=== PATIENT | male | born 1965 | race Caucasian/White ===

== ENCOUNTER 2017-06-28 10:17 | Inpatient (IN) | payer BC ==
[~2017-06-28] VITALS: Ht 180.3 cm; Wt 144.0 kg
[~2017-06-28 10:17] MED LIST: ALLERGY RELIEF10 M5 PO; ANCEF,KEFZ2 GM/100 M IV; ASPIRIN EC325 MG PO; ATORVASTATIN CA40 MG PO; BACTRIM,SEPT1 TABLET PO; CHILD ASPIRIN81 M1 PO; CINNAMON PLUS1 EACH PO; Colace PO; FISH OIL EC 1,1 EACH PO; FLONASE16 G1 BOTH NARES; GLUCOPHAGE850 MG PO; HUMALOG100 UNIT/1 SC; HUMULIN R100 UNITS/ SC; IODOSORB40 GM TP; JARDIANCE25 MG PO; LEVEMIR FL100 UNIT/1 SC; LEVEMIR FL100 UNITS/ SC; LOPID600 MG PO; LOTREL 5/201 CAPSULE PO; MAGNESIUM OXID500 MG PO; NIACIN FLUSH F1 EACH PO; NITROGLYCERIN0.4 MG SL; ONE DAILY FOR1 EACH PO; PRILOSEC40 MG PO; RANEXA500 MG PO; TOPROL XL100 MG PO; VENLAFAXINE HCL75 M3 PO; VIAGRA100 MG PO; VITAMIN B122500 MCG PO; VITAMIN C WIT1000 MG PO
[2017-06-28 17:07] VITALS: BP 106/56
[2017-06-28 19:50] VITALS: BP 107/53
[2017-06-28 23:55] VITALS: BP 103/57
[2017-06-29 04:00] VITALS: BP 132/69
[2017-06-29 05:45] LABS: BASOPHIL (%) 0.6 % (0-1); EOSINOPHIL (%) 1.6 % (0-5); EOSINOPHIL COUNT 0.1 K/uL (0-0.3); HEMATOCRIT 36.6 % (38.0-50.0); HEMOGLOBIN 11.6 G/DL (12.5-16.6); IMMATURE GRANULOCYTE (%) 0.3 % (0.0-0.7); LYMPHOCYTE (%) 30.8 % (15-42); LYMPHOCYTE COUNT 2.1 K/uL (1.0-2.8); MCH 27.4 PG (29.0-34.0); MCHC 31.7 G/DL (30.0-36.0); MCV 86.3 FL (86-99); MONOCYTE (%) 8.5 % (3-12); MONOCYTE COUNT 0.6 K/uL (0-0.8); NEUTROPHIL (%) 58.2 % (45-76); PLATELET COUNT 211 K/uL (156-360); RBC DIS.WIDTH-CV 13.4 % (11.8-14.6); RBC DIS.WIDTH-SD 41.5 % (39-53); RED BLOOD COUNT 4.24 M/uL (4.00-5.50); WHITE BLOOD COUNT 6.8 K/uL (4.1-10.2)
[2017-06-29 06:13] LABS: CHLORIDE 107 MEQ/L (99-109); CREATININE 1.2 MG/DL (0.6-1.3); GFR ESTIMATE (CALCULATED) > 59 mL/min/ (58.99-99999); GLUCOSE 166 mg/dL (70-99); SODIUM 138 MEQ/L (136-147); UREA NITROGEN (BUN) 20 mg/dL (9-23)
[2017-06-29 06:24] LABS: POTASSIUM ND MEQ/L (3.7-5.4)
[2017-06-29 07:50] LABS: POTASSIUM 4.8 MEQ/L (3.7-5.4)
[2017-06-29 07:51] VITALS: BP 115/56
[2017-06-29 11:20] VITALS: BP 118/59
[2017-06-29] MEDS ORDERED: EFFIENT10 MG PO (11:26)
== END 2017-06-29 17:03 | disposition home or self-care (01) | DRG 247 ==
LOC: CATH 10:17 → ENRESERV 14:43 → 2SOUTH 14:49 → 4EAST 14:49 → ENRESERV 14:58 → 4EAST 16:57
PROVIDERS: Internal Medicine Interventional Cardiology
PROC: 4A023N7 Measurement of Cardiac Sampling and Pressure, Left Heart, Percutaneous Approach (ICD-10-PCS; principal; 2017-06-28)
PROC: 027135Z Dilation of Coronary Artery, Two Arteries with Two Drug-eluting Intraluminal Devices, Percutaneous Approach (ICD-10-PCS; principal; 2017-06-28)
PROC: B2111ZZ Fluoroscopy of Multiple Coronary Arteries using Low Osmolar Contrast (ICD-10-PCS; principal; 2017-06-28)
PROC: B2151ZZ Fluoroscopy of Left Heart using Low Osmolar Contrast (ICD-10-PCS; principal; 2017-06-28)
DX: I25.110 Atherosclerotic heart disease of native coronary artery with unstable angina pectoris (principal); Z68.42 Body mass index [BMI] 45.0-49.9, adult; E66.9 Obesity, unspecified; I34.0 Nonrheumatic mitral (valve) insufficiency; I10 Essential (primary) hypertension; E78.2 Mixed hyperlipidemia; E11.42 Type 2 diabetes mellitus with diabetic polyneuropathy; G47.33 Obstructive sleep apnea (adult) (pediatric)
CPT/HCPCS: 80048; 82948; 84999; 85025; 85347; 93005; C1725; C1769; C1874; C1887; J1644; J2250; J3010; J7030

== ENCOUNTER 2017-08-03 21:54 | Inpatient (IN) | payer BC ==
[~2017-08-03] VITALS: Ht 180.3 cm; Wt 150.0 kg
[~2017-08-03 21:54] MED LIST changes: +ADULT ASPIRIN81 MG PO; -ALLERGY RELIEF10 M5 PO; -CHILD ASPIRIN81 M1 PO; +EFFIENT10 MG PO; -HUMULIN R100 UNITS/ SC; +HUMULIN R500 UNIT/1 SC; +OMEPRAZOLE40 M1 PO; -PRILOSEC40 MG PO; -VITAMIN C WIT1000 MG PO; +VITAMIN C1000 MG PO; +ZYRTEC10 M3 PO
[2017-08-03 22:31] LABS: HEMATOCRIT 33.5 % (38.0-50.0); HEMOGLOBIN 11.5 G/DL (12.5-16.6); MCH 28.5 PG (29.0-34.0); MCHC 34.3 G/DL (30.0-36.0); MCV 83.1 FL (86-99); PLATELET COUNT 203 K/uL (156-360); RBC DIS.WIDTH-CV 13.3 % (11.8-14.6); RBC DIS.WIDTH-SD 40.4 % (39-53); RED BLOOD COUNT 4.03 M/uL (4.00-5.50); WHITE BLOOD COUNT 10.3 K/uL (4.1-10.2)
[2017-08-03 22:42] LABS: INTER. NORMALIZED RATIO 1.2
[2017-08-03 22:44] LABS: CHLORIDE 103 mEq/L (99-109); PTT 24.2 SEC (25-37); SODIUM 135 mEq/L (136-147)
[2017-08-03 22:46] LABS: GLUCOSE 106 mg/dL (70-99)
[2017-08-03 22:49] LABS: CREATININE 1.2 mg/dL (0.6-1.3); GFR ESTIMATE (CALCULATED) > 59 mL/min/ (58.99-99999)
[2017-08-03 22:50] LABS: UREA NITROGEN (BUN) 23 mg/dL (9-23)
[2017-08-03 22:55] LABS: TROP-I INTERPRETATION NEGATIVE; TROPONIN-I 0.06 ng/mL (0.0-0.30)
[2017-08-03] MEDS ORDERED: EFFIENT10 MG PO (23:29)
[2017-08-04 02:05] LABS: ERTH.SED.RATE 25 MM/HR (0-15)
[2017-08-04 02:21] VITALS: BP 127/60
[2017-08-04 05:50] LABS: TROP-I INTERPRETATION INDETERMINATE; TROPONIN-I 0.56 ng/mL (0.0-0.30)
[2017-08-04 05:54] LABS: HDL CHOLESTEROL 27 MG/DL (Desirable>=40); LDL CHOLESTEROL 56 mg/dL (Desirable<100); NON-HDL CHOLESTEROL 81 mg/dL (Desirable<160); TOTAL CHOLESTEROL 108 mg/dL (Desirable<200); TRIGLYCERIDES 124 MG/DL (Normal: <150)
[2017-08-04 07:30] VITALS: BP 130/62
[2017-08-04 09:30] VITALS: BP 127/77
[2017-08-04 09:41] LABS: DEVICE NRB; FI02 100 %; SITE RR
[2017-08-04 09:42] LABS: BICARBONATE 22.7 mEq/L (22-26); CARBOXY HGB 1.8 % (0-5); METHEMOGLOBIN 0.6 % (0-1.5); O2 SATURATION (CALCULATED) 88.4 % (95-99); PCO2 42 mm Hg (35-45); PO2 58 mm Hg (80-100); pH 7.34 (7.35-7.45)
[2017-08-04 10:01] LABS: INTER. NORMALIZED RATIO 1.2
[2017-08-04 10:03] LABS: D-DIMER ELISA < 150.00 ng/mLDDU (<230)
[2017-08-04 10:04] LABS: PTT 28.9 SEC (25-37)
[2017-08-04 10:17] LABS: TROP-I INTERPRETATION INDETERMINATE
[2017-08-04 10:18] LABS: TROP-I INTERPRETATION INDETERMINATE; TROPONIN-I 0.53 ng/mL (0.0-0.30)
[2017-08-04 10:48] LABS: HEMOGLOBIN A1c (GLYCOHEMOGLOB) 6.7 % (Below 5.7)
[2017-08-04 15:03] VITALS: BP 123/63
[2017-08-04 17:31] LABS: TROP-I INTERPRETATION POSITIVE; TROPONIN-I 5.54 ng/mL (0.0-0.30)
[2017-08-04 17:53] VITALS: BP 138/73
[2017-08-04 20:25] VITALS: BP 132/65
[2017-08-04 20:35] LABS: CHLORIDE 102 MEQ/L (99-109); CREATININE 1.3 MG/DL (0.6-1.3); GFR ESTIMATE (CALCULATED) > 59 mL/min/ (58.99-99999); GLUCOSE 112 mg/dL (70-99); POTASSIUM 4.7 MEQ/L (3.7-5.4); SODIUM 138 MEQ/L (136-147); UREA NITROGEN (BUN) 18 mg/dL (9-23)
[2017-08-04 20:35] LABS: INTER. NORMALIZED RATIO 1.2
[2017-08-04 20:38] LABS: PTT 25.3 SEC (25-37)
[2017-08-05 00:26] VITALS: BP 124/68
[2017-08-05 05:05] VITALS: BP 111/71
[2017-08-05 07:38] VITALS: BP 129/67
[2017-08-05 10:39] LABS: BASOPHIL (%) 0.4 % (0-1); EOSINOPHIL (%) 1.2 % (0-5); EOSINOPHIL COUNT 0.1 K/uL (0-0.3); HEMATOCRIT 33.1 % (38.0-50.0); IMMATURE GRANULOCYTE (%) 0.4 % (0.0-0.7); LYMPHOCYTE (%) 20.3 % (15-42); LYMPHOCYTE COUNT 1.6 K/uL (1.0-2.8); MCH 27.8 PG (29.0-34.0); MCHC 33.2 G/DL (30.0-36.0); MCV 83.6 FL (86-99); MONOCYTE (%) 7.1 % (3-12); MONOCYTE COUNT 0.6 K/uL (0-0.8); NEUTROPHIL (%) 70.6 % (45-76); NEUTROPHIL COUNT 5.7 K/uL (1.8-6.4); PLATELET COUNT 195 K/uL (156-360); RBC DIS.WIDTH-CV 13.2 % (11.8-14.6); RBC DIS.WIDTH-SD 40.2 % (39-53); RED BLOOD COUNT 3.96 M/uL (4.00-5.50)
[2017-08-05 11:09] LABS: TROP-I INTERPRETATION POSITIVE; TROPONIN-I 3.16 ng/mL (0.0-0.30)
[2017-08-05 11:37] LABS: CHLORIDE 100 MEQ/L (99-109); CREATININE 1.2 MG/DL (0.6-1.3); GFR ESTIMATE (CALCULATED) > 59 mL/min/ (58.99-99999); GLUCOSE 157 mg/dL (70-99); POTASSIUM 4.1 MEQ/L (3.7-5.4); SODIUM 136 MEQ/L (136-147); UREA NITROGEN (BUN) 20 mg/dL (9-23)
[2017-08-05 11:40] VITALS: BP 118/55
[2017-08-05 15:46] VITALS: BP 134/65
[2017-08-05 19:33] VITALS: BP 130/65
[2017-08-06] VITALS (7 sets, daily range): BP systolic 124–137; BP diastolic 60–79
[2017-08-06 06:55] LABS: HEMATOCRIT 30.6 % (38.0-50.0); HEMOGLOBIN 10.1 G/DL (12.5-16.6); MCH 27.5 PG (29.0-34.0); MCV 83.4 FL (86-99); PLATELET COUNT 185 K/uL (156-360); RBC DIS.WIDTH-CV 13.2 % (11.8-14.6); RBC DIS.WIDTH-SD 40.4 % (39-53); RED BLOOD COUNT 3.67 M/uL (4.00-5.50); WHITE BLOOD COUNT 5.8 K/uL (4.1-10.2)
[2017-08-06 09:37] LABS: CHLORIDE 101 MEQ/L (99-109); CREATININE 0.9 MG/DL (0.6-1.3); GFR ESTIMATE (CALCULATED) > 59 mL/min/ (58.99-99999); GLUCOSE 111 mg/dL (70-99); POTASSIUM 3.9 MEQ/L (3.7-5.4); SODIUM 138 MEQ/L (136-147); UREA NITROGEN (BUN) 16 mg/dL (9-23)
[2017-08-06 17:42] LABS: INTER. NORMALIZED RATIO 1.2
[2017-08-06 17:45] LABS: PTT 28.5 SEC (25-37)
[2017-08-06 23:01] LABS: INTER. NORMALIZED RATIO 1.3
[2017-08-07 04:16] VITALS: BP 136/62
[2017-08-07 07:12] LABS: HEMATOCRIT 31.9 % (38.0-50.0); HEMOGLOBIN 10.4 G/DL (12.5-16.6); MCH 27.2 PG (29.0-34.0); MCHC 32.6 G/DL (30.0-36.0); MCV 83.5 FL (86-99); PLATELET COUNT 219 K/uL (156-360); RBC DIS.WIDTH-CV 13.3 % (11.8-14.6); RBC DIS.WIDTH-SD 40.3 % (39-53); RED BLOOD COUNT 3.82 M/uL (4.00-5.50); WHITE BLOOD COUNT 6.7 K/uL (4.1-10.2)
[2017-08-07 07:37] LABS: CHLORIDE 103 MEQ/L (99-109); CREATININE 0.9 MG/DL (0.6-1.3); GFR ESTIMATE (CALCULATED) > 59 mL/min/ (58.99-99999); GLUCOSE 103 mg/dL (70-99); MAGNESIUM 1.9 mg/dl (1.3-2.7); POTASSIUM 3.8 MEQ/L (3.7-5.4); SODIUM 139 MEQ/L (136-147); UREA NITROGEN (BUN) 15 mg/dL (9-23)
[2017-08-07 08:30] VITALS: BP 125/58
[2017-08-07 12:00] VITALS: BP 134/63
[2017-08-07 16:04] VITALS: BP 132/63
[2017-08-07 20:23] VITALS: BP 145/68
[2017-08-08 00:04] VITALS: BP 128/60; BP 164/68
[2017-08-08 05:16] VITALS: BP 146/67
[2017-08-08 07:38] LABS: INTER. NORMALIZED RATIO 1.2
[2017-08-08 07:43] LABS: PTT 26.3 SEC (25-37)
[2017-08-08 09:33] VITALS: BP 152/63
[2017-08-08 12:00] VITALS: BP 133/72
[2017-08-08 15:48] VITALS: BP 145/68
[2017-08-08 19:15] VITALS: BP 138/65
[2017-08-09 00:55] VITALS: BP 139/62
[2017-08-09 03:19] VITALS: BP 138/67
[2017-08-09 08:00] VITALS: BP 135/65
[2017-08-09 11:32] VITALS: BP 144/69
[2017-08-09 16:01] VITALS: BP 145/73
[2017-08-09 20:00] VITALS: BP 125/58
[2017-08-10] VITALS: BP 134/64
[2017-08-10 04:00] VITALS: BP 133/61
[2017-08-10 08:21] VITALS: BP 128/64
[2017-08-10 12:02] VITALS: BP 133/63
[2017-08-10 19:55] VITALS: BP 133/63
[2017-08-10 23:48] VITALS: BP 137/62
[2017-08-11 04:00] VITALS: BP 141/65
[2017-08-11 07:49] VITALS: BP 128/58
[2017-08-11 11:47] LABS: HEMATOCRIT 35.2 % (38.0-50.0); HEMOGLOBIN 11.2 G/DL (12.5-16.6); MCH 27.3 PG (29.0-34.0); MCHC 31.8 G/DL (30.0-36.0); MCV 85.9 FL (86-99); PLATELET COUNT 277 K/uL (156-360); RBC DIS.WIDTH-CV 13.8 % (11.8-14.6); RBC DIS.WIDTH-SD 42.5 % (39-53); WHITE BLOOD COUNT 8.9 K/uL (4.1-10.2)
[2017-08-11 12:04] LABS: ALBUMIN 3.8 G/DL (3.2-4.8); CHLORIDE 102 MEQ/L (99-109); POTASSIUM 4.3 MEQ/L (3.7-5.4); SODIUM 139 MEQ/L (136-147); TOTAL BILIRUBIN 0.5 MG/DL (0.0-1.0)
[2017-08-11 12:11] LABS: ALKALINE PHOSPHATASE 91 IU/L (3-129); ALT (GPT) 29 IU/L (3-49); AST (GOT) 24 IU/L (2-34); CREATININE 0.9 MG/DL (0.6-1.3); GFR ESTIMATE (CALCULATED) > 59 mL/min/ (58.99-99999); GLUCOSE 162 mg/dL (70-99); TOTAL PROTEIN 6.8 G/DL (6.4-8.3); UREA NITROGEN (BUN) 11 mg/dL (9-23)
[2017-08-11 17:02] VITALS: BP 145/67
[2017-08-11 19:30] VITALS: BP 135/61
[2017-08-11 23:46] VITALS: BP 120/56
[2017-08-12 04:46] VITALS: BP 116/56
[2017-08-12 07:01] LABS: BASOPHIL (%) 0.5 % (0-1); EOSINOPHIL COUNT 0.2 K/uL (0-0.3); HEMATOCRIT 33.1 % (38.0-50.0); HEMOGLOBIN 10.7 G/DL (12.5-16.6); IMMATURE GRANULOCYTE (%) 3.4 % (0.0-0.7); LYMPHOCYTE (%) 29.5 % (15-42); LYMPHOCYTE COUNT 2.4 K/uL (1.0-2.8); MCH 27.8 PG (29.0-34.0); MCHC 32.3 G/DL (30.0-36.0); MONOCYTE (%) 6.9 % (3-12); MONOCYTE COUNT 0.6 K/uL (0-0.8); NEUTROPHIL (%) 57.7 % (45-76); NEUTROPHIL COUNT 4.6 K/uL (1.8-6.4); NRBC (%) 0.4 /100 WBC (0-0); PLATELET COUNT 238 K/uL (156-360); RBC DIS.WIDTH-CV 13.9 % (11.8-14.6); RBC DIS.WIDTH-SD 42.2 % (39-53); RED BLOOD COUNT 3.85 M/uL (4.00-5.50)
[2017-08-12 07:24] LABS: CHLORIDE 106 MEQ/L (99-109); GFR ESTIMATE (CALCULATED) > 59 mL/min/ (58.99-99999); GLUCOSE 125 mg/dL (70-99); POTASSIUM 4.5 MEQ/L (3.7-5.4); SODIUM 141 MEQ/L (136-147); UREA NITROGEN (BUN) 15 mg/dL (9-23)
[2017-08-12 08:15] VITALS: BP 119/60
[2017-08-12 20:00] VITALS: BP 140/64
[2017-08-13 00:20] VITALS: BP 138/63
[2017-08-13 04:14] VITALS: BP 116/57
[2017-08-13 11:52] VITALS: BP 147/70
[2017-08-13] MEDS ORDERED: HUMULIN R500 UNITS/ SC (15:06)
[2017-08-13 16:14] VITALS: BP 165/75
== END 2017-08-13 17:58 | disposition home health service (06) | DRG 853 ==
LOC: EME → EDBD 21:54 → EME 21:54 → EDOF 08-04 00:27 → ENRESERV 08-04 00:28 → 4SOUTH 08-04 02:07 → CANRESERV 08-04 09:54 → ENRESERV 08-04 09:54 → 4SOUTH 08-04 10:29 → 4EAST 08-04 10:29 → 4SOUTH 08-04 10:29 → CANRESERV 08-04 14:19 → ENRESERV 08-04 14:19 → 4EAST 08-04 17:09 → ENRESERV 08-08 21:12 → 4SOUTH 08-08 21:59
PROVIDERS: Emergency Medicine; Hospitalist; Internal Medicine; Internal Medicine Cardiovascular Disease; Physician Assistant Medical
PROC: 0JBR0ZZ Excision of Left Foot Subcutaneous Tissue and Fascia, Open Approach (ICD-10-PCS; principal; 2017-08-05)
DX: A41.01 Sepsis due to Methicillin susceptible Staphylococcus aureus (principal); I21.4 Non-ST elevation (NSTEMI) myocardial infarction; J96.01 Acute respiratory failure with hypoxia; I48.0 Paroxysmal atrial fibrillation; E66.01 Morbid (severe) obesity due to excess calories; Z68.42 Body mass index [BMI] 45.0-49.9, adult; L97.529 Non-pressure chronic ulcer of other part of left foot with unspecified severity; E11.42 Type 2 diabetes mellitus with diabetic polyneuropathy; E11.621 Type 2 diabetes mellitus with foot ulcer; L97.819 Non-pressure chronic ulcer of other part of right lower leg with unspecified severity; R65.20 Severe sepsis without septic shock; I42.9 Cardiomyopathy, unspecified; E11.622 Type 2 diabetes mellitus with other skin ulcer; E11.69 Type 2 diabetes mellitus with other specified complication; J18.9 Pneumonia, unspecified organism; Q23.1 Congenital insufficiency of aortic valve; Z79.82 Long term (current) use of aspirin; I10 Essential (primary) hypertension; I25.10 Atherosclerotic heart disease of native coronary artery without angina pectoris; G47.33 Obstructive sleep apnea (adult) (pediatric); L03.116 Cellulitis of left lower limb; K21.9 Gastro-esophageal reflux disease without esophagitis; Z95.5 Presence of coronary angioplasty implant and graft; E78.5 Hyperlipidemia, unspecified; M86.672 Other chronic osteomyelitis, left ankle and foot; F41.9 Anxiety disorder, unspecified; L60.0 Ingrowing nail; J70.2 Acute drug-induced interstitial lung disorders; T50.995A Adverse effect of other drugs, medicaments and biological substances, initial encounter; Y92.230 Patient room in hospital as the place of occurrence of the external cause; L03.032 Cellulitis of left toe; Z89.021 Acquired absence of right finger(s); Z89.411 Acquired absence of right great toe; Z87.891 Personal history of nicotine dependence; Z83.3 Family history of diabetes mellitus; Z79.4 Long term (current) use of insulin; Z79.01 Long term (current) use of anticoagulants
CPT/HCPCS: 36600; 71045; 71046; 71275; 73630; 73720; 76937; 80048; 80048 91; 80053; 80061; 80202; 82803; 82948; 83036; 83605; 83735; 83880; 84484; 85025; 85027; 85379; 85610; 85651; 85730; 87040; 87070; 87075; 87077; 87147; 87186; 87205; 87801; 93005; 93306; 94660; 94799; 99281; 99285; C1753; J0690; J1650; J1815; J1885; J1940; J2270; J3370; J7030; J7050; J7120; S0032